=== PATIENT | female | born 1975 | race Caucasian/White ===

== ENCOUNTER 2021-12-15 09:19 | Emergency (ER) | payer OTHER ==
[~2021-12-15] VITALS: Ht 177.8 cm; Wt 149.7 kg
[~2021-12-15 09:19] MED LIST: AVAPRO150 MG; METFORMIN HCL500 MG
[2021-12-15] MEDS ORDERED: LIPITOR20 MG (09:32)
[2021-12-15] MEDS ORDERED: ALTACE1.25 MG (09:32)
[2021-12-15] MEDS ORDERED: INSULIN SYRING1 EA29 (09:32)
[2021-12-15] MEDS ORDERED: TOPROL XL25 M1 (09:32)
[2021-12-15] MEDS ORDERED: GLIPIZIDE XL5 MG (09:33)
== END 2021-12-15 15:08 | disposition home or self-care (01) ==
LOC: ER 09:19
DX: U07.1 COVID-19 (principal); Z88.0 Allergy status to penicillin